=== PATIENT | male | born 2000 | race Caucasian/White ===

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

== ENCOUNTER 2023-04-17 09:51 | Emergency (ER) | payer SELFPAY ==
[~2023-04-17] VITALS: Ht 167 cm; Wt 51.0 kg
--- NOTE | 2023-04-17 10:24 | ED General ---
General Chief Complaint: Bite-Animal/Human/Insect Stated Complaint: BEE STING | ALLERGIC | NO EPI PEN Nursing Triage Note: PT AMB TO [facility] PT CO OF BEING STUNG ON R WRIST BY INSECT, PT STATES IS HIGHLY ALLERGIC TO BEE STINGS. NO EXACTLY SURE WHAT STUNG HIM. PT USULALLY CARRIES EPI PEN BUT DID NOT HAVE ONE THIS AM. R WRIST HAS SWELLING AND PAIN AT BITE SITE Source of Information: Patient Exam Limitations: No Limitations History of Present Illness Date Seen by Provider: Apr 17, 2023 Time Seen by Provider: 10:24 Initial Comments Patient was working at the [employer] course and was stung on the right forearm. He has history of a severe reaction to bee sting and became concerned. He did not have an EpiPen with him. He therefore presented to the emergency room. He denies any systemic symptoms. He has not had any shortness of breath, hives, swelling of the lips, swelling of the tongue, throat tightening, etc. He has minor erythema, swelling, burning and itching at the site. He has not taken any medications for the symptoms. Allergies and Home Medications Allergies Coded Allergies: bee pollen (Verified Allergy, Intermediate, 04/17/23) Patient Home Medication List Home Medication List Reviewed: Yes Review of Systems Review of Systems Constitutional: no symptoms reported EENTM: no symptoms reported Respiratory: no symptoms reported Cardiovascular: no symptoms reported Skin: see HPI Immunological/Allergic: no symptoms reported Past Mlkovqp-Defcar-Pdkimc Hx Patient Social History Tobacco Use?: Yes Smoking Status: Current Everyday Smoker Use of E-Cig and/or Vaping dev: Yes E-Cig or Vaping type used: Nicotine Use of E-Cig and/or Vaping Ryley: Current Everyday User Substance use?: Yes Substance type: Marijuana Substance frequency: Once in a while Alcohol Use?: Yes Alcohol type: Hard Liquor Alcohol Frequency: Couple times a week Past Medical History Surgeries: No Respiratory: No Cardiac: No Neurological: No Genitourinary: No Gastrointestinal: No Musculoskeletal: No Endocrine: No HEENT: No Cancer: No Psychosocial: No Integumentary: No Physical Exam Vital Signs Vital Signs - First Documented 04/17/23 09:55 Temp 36.2 Pulse 62 Resp 18 B/P (MAP) 137/91 (106) Pulse Ox 99 Capillary Refill : Height, Weight, BMI Height: '" Weight: lbs. oz. kg; 18.00 BMI Method: General Appearance: No Apparent Distress, WD/WN HEENT: Normal ENT Inspection, Pharynx Normal Neck: Normal Inspection Respiratory: Lungs Clear, Normal Breath Sounds, No Accessory Muscle Use Cardiovascular: Regular Rate, Rhythm, No Edema, No Murmur Extremity: Other (Minor erythema and swelling of the right ulnar aspect of the forearm) Neurologic/Psychiatric: Alert, Oriented x3, No Motor/Sensory Deficits Skin: Warm/Dry, Erythema (Near the sting site) Progress/Results/Core Measures Suspected Sepsis SIRS Temperature: Pulse: 62 Respiratory Rate: 18 Blood Pressure 137 /91 Mean: 106 Results/Orders Vital Signs/I&O 04/17/23 04/17/23 09:55 10:46 Temp 36.2 36.2 Pulse 62 62 Resp 18 18 B/P (MAP) 137/91 (106) 137/91 Pulse Ox 99 99 Capillary Refill : Blood Pressure Mean: 106 Departure Impression Primary Impression: Insect sting Qualified Codes: T63.481A - Toxic effect of venom of other arthropod, accidental (unintentional), initial encounter Disposition: 01 HOME, SELF-CARE Condition: Stable Departure-Patient Inst. Decision time for Depature: 10:42 Referrals: NO,LOCAL PHYSICIAN (PCP/Family) Primary Care Physician Patient Instructions: Insect Bites and Stings ED Add. Discharge Instructions: You may treat pain with ibuprofen up to 600 mg every 6 hours as needed and/or Tylenol (acetaminophen) up to 1000 mg every 6 hours as needed. You may also ice in 20-minute intervals to reduce pain and swelling. Elevate to the level of your heart to help reduce swelling. Pain and swelling may worsen over the next several hours. Symptoms should resolve within 48 hours. For itching you may use antihistamine medication. You may use a long-acting nondrowsy antihistamine such as loratadine (Claritin). Benadryl (diphenhydramine) may also be used but may cause drowsiness. Return to the emergency room if you develop hives, generalized rash, or swelling of the lips, tongue, or throat, or if you have shortness of breath. All discharge instructions reviewed with patient and/or family. Voiced understanding. DARREN MEI MD Apr 17, 2023 10:24
[2023-04-17 10:46] VITALS: BP 137/91
== END 2023-04-17 10:50 | disposition home or self-care (01) ==
LOC: EDUNIT# 09:51 → ER 09:54
DX: T63.481A Toxic effect of venom of other arthropod, accidental (unintentional), initial encounter (principal); F17.290 Nicotine dependence, other tobacco product, uncomplicated; Y92.59 Other trade areas as the place of occurrence of the external cause; Y99.0 Civilian activity done for income or pay
CPT/HCPCS: 99281